=== PATIENT | female | born 1975 | race American Indian/Alaskan Native ===

== ENCOUNTER 2019-11-21 12:13 | Emergency (ER) | payer OTHER ==
[2019-11-21 12:56] VITALS: BP 114/52
[2019-11-21] MEDS ORDERED: ASPIRIN 325 MG TAB PO ONE (12:59)
--- NOTE | 2019-11-21 13:01 | Event Note ---
ED Screening Note Date of service: 11/21/19 Time: 12:59 ED Screening Note: 44 yo F w/ chest soreness and associated left arm tingling. Reports shortness of breath. Denies diaphoresis, nausea, vomiting, leg pain or swelling. This initial assessment/diagnostic orders/clinical plan/treatment(s) is/are subject to change based on patients health status, clinical progression and re- assessment by fellow clinical providers in the ED. Further treatment and workup at subsequent clinical providers discretion. Patient/guardian urged not to elope from the ED as their condition may be serious if not clinically assessed and managed. Initial orders include: EKG CXR labs
--- NOTE | 2019-11-21 13:30 | XRay Report ---
CHEST 2 VIEWS INDICATION / CLINICAL INFORMATION: chest pain. COMPARISON: None available. FINDINGS: SUPPORT DEVICES: None. HEART / MEDIASTINUM: No significant abnormality. LUNGS / PLEURA: No significant pulmonary or pleural abnormality. No pneumothorax. ADDITIONAL FINDINGS: No significant additional findings. IMPRESSION: 1. No acute findings. Signer Name: Jeffy Bee MD Signed: 11/21/2019 1:26 PM Workstation Name: [id number]
[2019-11-21 14:15] LABS: Basophils % (Auto) 0.6 % (0.0-1.8); Eosinophils # (Auto) 0.1 K/mm3 (0.0-0.4); Eosinophils % (Auto) 1.5 % (0.0-4.3); Hematocrit 39.1 % (30.3-42.9); Hemoglobin 12.7 gm/dl (10.1-14.3); Lymphocytes # (Auto) 2.5 K/mm3 (1.2-5.4); Mean Corpuscular HGB Conc 33 % (30-34); Mean Corpuscular Volume 92 fl (79-97); Monocytes # (Auto) 0.7 K/mm3 (0.0-0.8); Monocytes % (Auto) 10.1 % (0.0-7.3); Platelet Count 192 K/mm3 (140-440); Red Blood Count 4.26 M/mm3 (3.65-5.03); Red Cell Distribution Width 15.3 % (13.2-15.2)
[2019-11-21 14:27] LABS: INR 0.87 (0.87-1.13)
[2019-11-21 14:28] LABS: Partial Thromboplastin Time 30.3 Sec. (24.2-36.6)
[2019-11-21 14:41] LABS: BUN/Creatinine Ratio 20; Blood Urea Nitrogen 12 mg/dL (7-17); Calcium 9.2 mg/dL (8.4-10.2); Hemolysis Index 10
--- NOTE | 2019-11-21 15:04 | Emergency Department Report ---
ED Chest Pain HPI - General Chief Complaint: Chest Pain Stated Complaint: LEFT ARM TINGLING/CP Time Seen by Provider: 11/21/19 14:16 Source: patient Mode of arrival: Ambulatory Limitations: No Limitations - History of Present Illness Initial Comments: 4-year-old relatively healthy [place] female to emergency Department complaining of tingling sensation to her left on as she thinks may be secondary to her job. 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 The symptoms appeared to worsen with various range of motion. She reports no presyncope nausea vomiting. She reports having some issues with shortness of breath with the assessment on warm for several months. A portable chemistries swelling, hemoptysis, hematemesis or hematochezia. Also has a vague soreness to her chest which is been present for the last few weeks as well symptoms appeared to worsen with various range of motion. She denies any trauma Pain Location: left chest, right chest Pain Radiation: none Consistency: constant Improves With: nothing re: denies: nausea, vomting, sense of impending doom Other Symptoms: palpitations (previous history of palpable palpitations she reports none none at current). denies: cough, fever, rash, acid taste in mouth, burping, other - Related Data Allergies Allergy/AdvReac Type Severity Reaction Status Date / Time Penicillins Allergy Unknown Verified 11/21/19 12:15 Heart Score - HEART Score History: Slightly suspicious EKG: Normal Age: < 45 Risk factors: No known risk factors Troponin: < normal limit HEART Score: 0 ED Review of Systems ROS: Stated complaint: LEFT ARM TINGLING/CP Other details as noted in HPI Comment: All other systems reviewed and negative ED Past Medical Hx - Past Medical History Previous Medical History?: No - Surgical History Past Surgical History?: No - Social History Smoking Status: Never Smoker Substance Use Type: None ED Physical Exam - General Limitations: No Limitations General appearance: alert, in no apparent distress - Head Head exam: Present: atraumatic, normocephalic - Eye Eye exam: Present: normal appearance, PERRL, EOMI Pupils: Present: normal accommodation - ENT ENT exam: Present: normal exam, normal orophraynx, mucous membranes moist, TM's normal bilaterally - Neck Neck exam: Present: normal inspection, tenderness (to the paraspinous region. Spurling's test is negative. Range of motion.), full ROM - Respiratory Respiratory exam: Present: normal lung sounds bilaterally. Absent: respiratory distress, wheezes, rales, rhonchi - Cardiovascular Cardiovascular Exam: Present: regular rate, normal rhythm. Absent: bradycardia, tachycardia, systolic murmur, diastolic murmur, rubs, gallop - GI/Abdominal GI/Abdominal exam: Present: soft, normal bowel sounds - Extremities Exam Extremities exam: Present: normal inspection, full ROM, normal capillary refill, other (note +. Normal phallus test. Pulses 2+. No masses are appreciated.). Absent: calf tenderness - Back Exam Back exam: Present: normal inspection. Absent: CVA tenderness (R), CVA tenderness (L), paraspinal tenderness, vertebral tenderness - Neurological Exam Neurological exam: Present: alert, oriented X3, CN II-XII intact - Psychiatric Psychiatric exam: Present: normal affect, normal mood - Skin Skin exam: Present: warm, dry, intact, normal color. Absent: rash ED Course Vital Signs 11/21/19 11/21/19 12:18 12:56 Temperature 97.8 F 97.8 F Pulse Rate 77 81 Respiratory 16 16 Rate Blood Pressure 114/52 114/52 O2 Sat by Pulse 100 100 Oximetry ADITYA score - Aditya Score Age > 65: (0) No Aspirin use within the Past 7 Days: (0) No 3 or more CAD Risk Factors: (0) No 2 or more Angina events in past 24 hrs: (0) No Known CAD with more than 50% Stenosis: (0) No Elevated Cardiac Markers: (0) No ST Deviation Greater than 0.5mm: (0) No ADITYA Score: 0 ED Medical Decision Making - Lab Data Result diagrams: 11/21/19 13:20 11/21/19 13:20 - EKG Data EKG shows normal: sinus rhythm Rate: normal - EKG Data Interpretation: normal EKG - Radiology Data Radiology results: report reviewed, image reviewed [facility] [address] [place] [address] XRay Report Signed Patient: EMELY STEPHENS MR#: [id number] : 1975 Acct:[id number] Age/Sex: 44 / F ADM Date: 11/21/19 Loc: ED Attending Dr: Ordering Physician: RAYMUNDO HEADLEY MD Date of Service: 11/21/19 Procedure(s): XR chest routine 2V Accession Number(s): [id number] cc: RAYMUNDO HEADLEY MD Fluoro Time In Minutes: CHEST 2 VIEWS INDICATION / CLINICAL INFORMATION: chest pain. COMPARISON: None available. FINDINGS: SUPPORT DEVICES: None. HEART / MEDIASTINUM: No significant abnormality. LUNGS / PLEURA: No significant pulmonary or pleural abnormality. No pneumothorax. ADDITIONAL FINDINGS: No significant additional findings. IMPRESSION: 1. No acute findings. Signer Name: Jeffy Bee MD Signed: 11/21/2019 1:26 PM Workstation Name: [id number] Transcribed By: [place] Dictated By: Jeffy Bee MD Electronically Authenticated By: Jeffy Bee MD Signed Date/Time: 11/21/191325 DD/ 25 TD/TT: - Medical Decision Making The patient presented with chest pain of uncertain etiology. Based on their history, lab analysis, EKG (which showed no evidence of ischemia or infarction), and imaging, in addition to the patient's physical exam, I see no evidence at this time for a malignant etiology for the patient's chest pain. There is no acute evidence for pulmonary embolus, acute myocardial infarction, pneumothorax, esophageal rupture, cardiac tamponade, thoracic artery dissection, or any other emergent cardiac, pulmonary or aortic pathology at this time. [Based on the nature and long duration of the patient's pain, paucity of EKG findings, and normal cardiac enzymatic blood analysis, acute coronary syndrome is exceedingly unlikely. It is highly likely that cardiac enzymes would be abnormal in chest pain of this duration if their chest pain was attributable to ACS.] [The patient also has very low risk for coronary artery disease based on their risk factor profile with no substantial risk factors (Age>65, >3 CAD risk factors -- family history of CAD, hypertension, hypercholesterolemia, diabetes, or current smoker, known CAD as defined by >50% stenosis, aspirin use in the past 7 days, severe angina having more than 2 episodes in the past 24 hours, ST changes >0.5mm, or positive cardiac biomarker).] HEART score _0-3. This patient may require cardiac stress testing on an outpatient basis and arrangements for this may be made during their follow-up visit with their primary care physician. The patient understands that at this time there is no evidence for a more malignant underlying process, but the patient also understands that early in the process of an illness, an emergency department workup can be falsely reassuring. Routine discharge counseling was given to the patient and the patient understands that worsening, changing, or persistent symptoms should prompt an immediate call or follow up with their primary physician or the emergency department immediately. The importance of close follow up was also discussed with the patient. Critical care attestation.: If time is entered above; I have spent that time in minutes in the direct care of this critically ill patient, excluding procedure time. ED Disposition Clinical Impression: Neuropathy, arm Disposition: DC-01 TO HOME OR SELFCARE Is pt being admited?: No Does the pt Need Aspirin: No Condition: Stable Instructions: Noncardiac Chest Pain (ED), Costochondritis (ED), Peripheral Neuropathy (ED) Referrals: ONE PIZARRO MD [Staff Physician] - 3-5 Days
== END 2019-11-21 15:55 | disposition home or self-care (01) ==
LOC: ED 12:13
DX: G56.90 Unspecified mononeuropathy of unspecified upper limb (principal); Z88.0 Allergy status to penicillin
CPT/HCPCS: 36415; 71046; 80048; 84484; 85025; 85610; 85730; 93005; 93010